=== PATIENT | female | born 1995 | race Caucasian/White ===

== ENCOUNTER 2017-04-27 09:30 | Emergency (ER) | payer OTHER ==
[2017-04-27 09:44] VITALS: BP 109/70; PULSE 91; RESP 16; TEMP 98.2; O2SAT 98
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
== END 2017-04-27 13:35 | disposition home or self-care (01) ==
LOC: EEVIPCON 09:30 → SANE 13:35
DX: T74.21XA Adult sexual abuse, confirmed, initial encounter (principal); Y07.9 Unspecified perpetrator of maltreatment and neglect